=== PATIENT | male | born 1965 | race Caucasian/White ===

== ENCOUNTER 2017-01-14 14:38 | Emergency (ER) | payer OTHER ==
[~2017-01-14] VITALS: Wt 81.6 kg
[~2017-01-14 14:38] MED LIST: CIPRO500 MG PO; DAYPRO600 M1 PO; HYDROCODONE BIT1 T11 PO; MOTRIN800 MG PO; NEURONTIN300 MG PO; ROBAXIN750 MG PO; SEPTRA DS 800 M1 TAB PO; VICODIN 500 MG-1 TAB PO
== END 2017-01-14 14:50 | disposition expired ==
LOC: ED 14:38
DX: I46.9 Cardiac arrest, cause unspecified (principal)